=== PATIENT | female | born 1965 | race Caucasian/White ===

== ENCOUNTER 2018-04-23 17:55 | Emergency (ER) | payer OTHER ==
[~2018-04-23] VITALS: Ht 157.5 cm; Wt 109.8 kg
[~2018-04-23 17:55] MED LIST: PERCOCET 5-3251 EACH PO
[2018-04-23] MEDS ORDERED: LOSARTAN-HCTZ1 EACH PO (18:11)
[2018-04-23] MEDS ORDERED: LANTUS SOL100 UNIT/1 SUB-Q (18:11)
[2018-04-23] MEDS ORDERED: ATORVASTATIN CA20 MG PO (18:12)
[2018-04-23] MEDS ORDERED: OMEPRAZOLE40 MG PO (18:12)
[2018-04-23] MEDS ORDERED: MONTELUKAST SOD10 MG PO (18:12)
[2018-04-23] MEDS ORDERED: METFORMIN HCL1000 MG PO (18:12)
[2018-04-23] MEDS ORDERED: SERTRALINE HCL100 MG PO (18:13)
[2018-04-23] MEDS ORDERED: BACTRIM DS TAB1 EACH PO (18:59)
== END 2018-04-23 19:08 | disposition home or self-care (01) ==
LOC: ED 17:55
DX: L02.211 Cutaneous abscess of abdominal wall (principal); I10 Essential (primary) hypertension; E11.9 Type 2 diabetes mellitus without complications; F17.200 Nicotine dependence, unspecified, uncomplicated; Z88.5 Allergy status to narcotic agent; Z79.4 Long term (current) use of insulin; Z79.899 Other long term (current) drug therapy
CPT/HCPCS: 90471; 90715; 99283-25

== ENCOUNTER 2019-03-12 06:30 | Day surgery (SDC) | payer OTHER ==
[~2019-03-12] VITALS: Ht 157.5 cm; Wt 110.7 kg
[~2019-03-12 06:30] MED LIST changes: +ATENOLOL50 MG PO; +ATORVASTATIN CA20 MG PO; +BACTRIM DS TAB1 EACH PO; +BASAGLAR K100 UNIT/1 SUB-Q; +HYZAAR 50-12.51 EACH PO; +LANTUS SOL100 UNIT/1 SUB-Q; +LANTUS100 UNITS/ SUB-Q; +LOSARTAN-HCTZ1 EACH PO; +METFORMIN HCL1000 MG PO; +MONTELUKAST SOD10 MG PO; +OMEPRAZOLE40 MG PO; +SERTRALINE HCL100 MG PO; +VICTOZA 2-0.6 MG/0.1 SUB-Q
[2019-03-12] MEDS ORDERED: BASAGLAR K100 UNIT/1 SUB-Q (06:50)
--- NOTE | 2019-03-12 08:05 | NUR ---
03/12/19 0805 Aishwarya Herrera 0759-PATIENT ARRIVED TO PACU ON 3L NC PLACED ON 2L. RR EVEN. PATIENT REACTIVE TO VERBAL STIMULI OPENS EYES. LAYING LEFT LATERAL. IVF INFUSING 0804-GLUCOSE CHECKED 185 PATIENT SLEEPING AROUSES TO VEBRAL STIMULI DENIES PAIN OR NAUSEA. PASSING GAS
--- NOTE | 2019-03-12 09:22 | OR ---
[facility] [address], [place] [address] Signed DATE OF OPERATION: 03/12/2019 SURGEON: Eliu Maxwell MD PREOPERATIVE DIAGNOSES: 1. Hyperplastic colonic polyps in 2011. 2. Diverticulosis. POSTOPERATIVE DIAGNOSES: 1. 4 mm polyps x4 at 5 cm. 2. Minimal sigmoid diverticulosis. 3. Minimal internal hemorrhoids. PROCEDURE: Colonoscopy with hot biopsy. ESTIMATED BLOOD LOSS: None. INDICATIONS: Seble is a 53-year-old female, asked to see me for a followup colonoscopy. In 2011, she had hyperplastic polyps removed. She is known to have a little diverticulosis. She was having some diarrhea, but they changed her insulin and that resolved. She has no family history of colon cancer or polyps. Otherwise, no lower GI complaints today. I gave Seble a pamphlet in the office on colonoscopy. She understands the nature of the test along with its risks including, but not limited to gas, bloating, crampy abdominal pain, bleeding, perforation requiring surgery, and missed diagnosis. She also understands the need for IV conscious sedation. She had expressed understanding and wished to proceed. PROCEDURE NOTE: Seble was taken into our endoscopy suite and placed in the left lateral decubitus position. She was given IV sedation with 6 mg of Versed and 100 mcg of fentanyl. She had been a little nauseated in preop area, so we gave her 8 mg of Zofran IV. A digital rectal exam was performed and this was unremarkable. The adult colonoscope was introduced and advanced all the way around into the cecum under direct visualization of camera without difficulty. Her prep was good. We could easily see the appendiceal orifice and the ileocecal valve. Pictures were taken throughout for photodocumentation. The scope was slowly withdrawn. She does have diverticula in the sigmoid colon. They were [id number]-[id number] in size, minimal in number, and scattered about. Down in the rectum, she had four tiny polyps removed with the help of hot biopsy forceps. They were Electronically Signed By: ELIU MAXWELL MD 03/12/19 0922 PATIENT NAME: SEBLE LAL OPERATIVE REPORT DATE OF : 61 REPORT #: [id number] PHYSICIAN: ELIU MAXWELL MD PCP: JEMAM LOWERY PA-C REPORT IS CONFIDENTIAL AND NOT TO BE RELEASED WITHOUT AUTHORIZATION [facility] [address], [place] [address] Signed all placed into the same jar. Upon retroflexion of the scope, she has very tiny internal hemorrhoid columns. After this, the gas was suctioned out and colonoscope removed. Seble tolerated the procedure quite well. RECOMMENDATIONS: I will see Seble back in my office in 7 to 14 days to review her results. MD YOVANI Liz/SILASL /[id number] cc: CARLOS ALBERTO Garcia MD Copies: JEMMA LOWERY PA-C, ANDREW L MD ~ Electronically Signed By: ELIU MAXWELL MD 03/12/19 0922 PATIENT NAME: SEBLE LAL MY OPERATIVE REPORT DATE OF : 61 REPORT #: [id number] PHYSICIAN: ELIU MAXWELL MD PCP: JEMMA LOWERY PA-C REPORT IS CONFIDENTIAL AND NOT TO BE RELEASED WITHOUT AUTHORIZATION
--- NOTE | 2019-03-13 14:56 | PATH ---
[facility] [address] [id number] Signed SPECIMEN(S): A COLON POLYPS AT 5 CM SPECIMEN SOURCE: A. COLON POLYPS AT 5 CM CLINICAL HISTORY: Preop Dx: Diarrhea, diverticulosis. Postop Dx: Multiple rectal polyps, diverticula. MICROSCOPIC DESCRIPTION: Histologic sections of all submitted blocks are examined by light microscopy. These findings, together with the gross examination, support the pathologic diagnosis. FINAL PATHOLOGIC DIAGNOSIS: Mucosa, colon, biopsies: - Hyperplastic polyps. LJA:cab:C2NR GROSS DESCRIPTION: The specimen is received in a formalin-filled specimen container labeled "TJ". Five pale lopez biopsies are 0.2 to 0.3 cm and entirely submitted in cassette A1. GW (under the direct supervision of a pathologist) The Gross Description was prepared using a voice recognition system. The report was reviewed for accuracy; however, sound-alike word errors, addition and/or deletions may occur. If there is any question about this report, please contact Client Services. PERFORMING LABORATORY: The technical component was performed by [facility], [address] [place] [id number] (Skein Bleacher: Kenisha Daniel MD; CLIA# [id number]). [facility], [address] [address] (Skein Bleacher: Etienne Daugherty MD; CLIA# [id number]). Diagnostician: Etienne Daugherty MD Pathologist Electronically Signed 03/13/2019 Copies: PATIENT NAME: SEBLE LAL PATHOLOGY DATE OF : 61 REPORT #: [id number] PHYSICIAN: ISRAEL CHAMPAGNE PCP: JEMMA LOWERY PA-C REPORT IS CONFIDENTIAL AND NOT TO BE RELEASED WITHOUT AUTHORIZATION [address] [address] Signed ~ PATIENT NAME: SEBLE LAL PATHOLOGY DATE OF : 61 REPORT #: [id number] PHYSICIAN: ISRAEL CHAMPAGNE PCP: JEMMA LOWERY PA-C REPORT IS CONFIDENTIAL AND NOT TO BE RELEASED WITHOUT AUTHORIZATION
== END 2019-03-12 08:56 | disposition home or self-care (01) ==
LOC: DS 06:30 → OPS 06:30
PROVIDERS: Colon & Rectal Surgery
PROC: 0DBE8ZZ Excision of Large Intestine, Via Natural or Artificial Opening Endoscopic (ICD-10-PCS; principal; 2019-03-12 06:45)
DX: Z12.11 Encounter for screening for malignant neoplasm of colon (principal); K63.5 Polyp of colon; K57.30 Diverticulosis of large intestine without perforation or abscess without bleeding; K64.8 Other hemorrhoids; I10 Essential (primary) hypertension; G47.30 Sleep apnea, unspecified; E66.01 Morbid (severe) obesity due to excess calories; E11.9 Type 2 diabetes mellitus without complications; M19.079 Primary osteoarthritis, unspecified ankle and foot; F32.9 Major depressive disorder, single episode, unspecified; Z86.010 Personal history of colon polyps; Z88.5 Allergy status to narcotic agent; Z68.41 Body mass index [BMI] 40.0-44.9, adult; Z79.4 Long term (current) use of insulin; Z79.899 Other long term (current) drug therapy
CPT/HCPCS: 88305; 99153; G0500; J2250; J2405; J3010; J7121

== ENCOUNTER 2020-05-05 09:55 | Emergency (ER) | payer OTHER ==
[~2020-05-05] VITALS: Ht 157.5 cm; Wt 110.7 kg
[2020-05-05] MEDS ORDERED: FLOVENT HFA12 GM INH (10:06)
[2020-05-05] MEDS ORDERED: ATENOLOL50 MG PO (10:06)
[2020-05-05] MEDS ORDERED: INSULIN AS100 UNIT/3 SUB-Q (10:06)
[2020-05-05] MEDS ORDERED: VENTOLIN HFA18 GM INH (10:07)
[2020-05-05] MEDS ORDERED: FAMCICLOVIR500 MG PO (10:51)
== END 2020-05-05 11:06 | disposition home or self-care (01) ==
LOC: ED 09:55
DX: B02.9 Zoster without complications (principal); I10 Essential (primary) hypertension; E11.9 Type 2 diabetes mellitus without complications; Z87.891 Personal history of nicotine dependence; Z88.5 Allergy status to narcotic agent; Z79.899 Other long term (current) drug therapy; Z79.4 Long term (current) use of insulin
CPT/HCPCS: 99283